=== PATIENT | female | born 1980 | race American Indian/Alaskan Native ===

== ENCOUNTER 2016-05-26 09:15 | Emergency (ER) | payer MEDICAID ==
[2016-05-26 09:25] VITALS: BP 122/75
== END 2016-05-26 14:45 | disposition left against medical advice (07) ==
LOC: ED 09:15
DX: N89.8 Other specified noninflammatory disorders of vagina (principal); Z53.21 Procedure and treatment not carried out due to patient leaving prior to being seen by health care provider